=== PATIENT | female | born 1970 | race Caucasian/White ===

== ENCOUNTER 2018-02-05 17:29 | Emergency (ER) | payer OTHER ==
[2018-02-05 17:42] VITALS: BP 116/77
[2018-02-05] MEDS ORDERED: levoFLOXacin 0.5% OPHTH DROPS 5 ML LEFTEYE STA (18:20)
[2018-02-05] MEDS ORDERED: PROPARACAINE 0.5% OPHTH DROPS 15 ML LEFTEYE STA (18:20)
--- NOTE | 2018-02-05 18:23 | ED Physician Documentation ---
PD HPI OPHTHO - Stated complaint Stated Complaint: L EYE PX - Chief complaint Chief Complaint: Heent - History obtained from History obtained from: Patient - History of Present Illness Timing - onset: Today (Scratched by her own dog to the left eye about 1 PM today with moderate pain, no visual deficit. Does not wear contacts.) Review of Systems Constitutional: reports: Reviewed and negative Throat: reports: Reviewed and negative Cardiac: reports: Reviewed and negative PD PAST MEDICAL HISTORY - Past Medical History Past Medical History: No - Past Surgical History Past Surgical History: No - Present Medications Home Medications: Ambulatory Orders Medication Instructions Recorded Confirmed levoFLOXacin 0.5% OPHTH DROPS 1 drops OPTH Q2H #1 bottle 02/05/18 [Quixin Ophth Drops] - Allergies Allergies/Adverse Reactions: Allergies Allergy/AdvReac Type Severity Reaction Status Date / Time acetaminophen Allergy Dizziness Verified 02/05/18 17:45 Fish Containing Products Allergy Anaphylaxis Verified 02/05/18 17:45 Sulfa (Sulfonamide Allergy Nausea Verified 02/05/18 17:45 Antibiotics) kale Allergy Anaphylaxis Uncoded 02/05/18 17:45 - Social History Does the pt smoke?: No Smoking Status: Never smoker Does the pt drink ETOH?: No Does the pt have substance abuse?: No - Immunizations Immunizations are current?: Yes - POLST Patient has POLST: No PD ED PE NORMAL - Vitals Vital signs reviewed: Yes - General General: Alert and oriented X 3, No acute distress - HEENT HEENT: PERRL, EOMI, Other (There is a small corneal abrasion, superolateral on the left eye) - Neck Neck: Supple, no meningeal sign, No bony TTP Results - Vitals Vitals: Vital Signs - 24 hr 02/05/18 17:39 Temperature 36.8 C Heart Rate 66 Respiratory 16 Rate Blood Pressure 116/77 O2 Saturation 99 Oxygen O2 Source Room air PD MEDICAL DECISION MAKING - Sepsis Event Vital Signs: Vital Signs - 24 hr 02/05/18 17:39 Temperature 36.8 C Heart Rate 66 Respiratory 16 Rate Blood Pressure 116/77 O2 Saturation 99 Oxygen O2 Source Room air Departure - Departure Disposition: 01 Home, Self Care Clinical Impression: Corneal abrasion, left Qualifiers: Encounter type: initial encounter Qualified Code(s): S05.02XA - Injury of conjunctiva and corneal abrasion without foreign body, left eye, initial encounter Condition: Good Record reviewed to determine appropriate education?: Yes Instructions: ED Eye Injury Corneal Abrasion Prescriptions: levoFLOXacin 0.5% OPHTH DROPS [Quixin Ophth Drops] 1 drops OPTH Q2H #1 bottle Comments: Follow-up with your eye doctor Wednesday if not better.
== END 2018-02-05 18:45 | disposition home or self-care (01) ==
LOC: ED 17:29
DX: S05.02XA Injury of conjunctiva and corneal abrasion without foreign body, left eye, initial encounter (principal); W54.8XXA Other contact with dog, initial encounter
CPT/HCPCS: 99283; A9270; J3490

== ENCOUNTER 2020-02-02 16:45 | Outpatient (CLI) | payer BC, OTHER | END 2020-02-02 23:59 | disposition home or self-care (01) | LOC: LAB.R 16:45 | PROVIDERS: ATTEND Physician Assistant Medical | DX: K52.9 Noninfective gastroenteritis and colitis, unspecified (principal) | CPT/HCPCS: 81599; 87506 ==

== ENCOUNTER 2020-06-23 13:02 | Outpatient (CLI) | payer BC ==
--- NOTE | 2020-06-23 13:22 | XRAY Report ---
PROCEDURE: Finger(s) RT INDICATIONS: THUMB PAIN, RIGHT TECHNIQUE: AP hand, 2 views of the first finger(s) acquired. COMPARISON: None FINDINGS: Bones: There appears to be mild ulnar subluxation of the proximal phalanx of the first digit in rela tion to the metacarpal. There is a prominent osteophyte at the ulnar aspect. There is a well-corticat ed ossicle adjacent to the first digit proximal phalangeal head. No acute fractures or dislocations. No suspicious bony lesions. Soft tissues: No suspicious soft tissue calcifications. IMPRESSION: Question of subluxation at the first MCP joint. Mild to moderate degenerative change at this joint. Reviewed by: Dank Diamond MD on 06/23/2020 12:21 PM [facility] Approved by: Dank Diamond MD on 06/23/2020 12:21 PM [facility] Station ID: [id number]
== END 2020-06-23 23:59 | disposition home or self-care (01) ==
LOC: DI.S 13:02
PROVIDERS: ATTEND Physician Assistant Medical
DX: M79.644 Pain in right finger(s) (principal); M19.041 Primary osteoarthritis, right hand

== ENCOUNTER 2020-12-27 15:57 | Outpatient (CLI) | payer BC ==
--- NOTE | 2020-12-27 16:40 | XRAY Report ---
PROCEDURE: Ankle 3 View RT INDICATIONS: RIGHT ANKLE PAIN TECHNIQUE: 3 views of the ankle were acquired. COMPARISON: None. FINDINGS: Bones: No fractures or dislocations. Ankle mortise is normally aligned. No suspicious bony lesions . Soft tissues: No tibiotalar joint effusion. Achilles tendon appears normal. IMPRESSION: No fracture. If the patient's pain or other symptoms persist, consider further evaluatio n with MRI. Reviewed by: Chet Dumas MD on 12/27/2020 4:38 PM PDT Approved by: Chet Dumas MD on 12/27/2020 4:38 PM PDT Station ID: [id number]
== END 2020-12-27 23:59 | disposition home or self-care (01) ==
LOC: DI.S 15:57
PROVIDERS: ATTEND Emergency Medicine
DX: M25.571 Pain in right ankle and joints of right foot (principal)

== ENCOUNTER 2021-10-28 09:17 | Outpatient (CLI) | payer BC ==
--- NOTE | 2021-10-28 12:47 | XRAY Report ---
PROCEDURE: Ankle 3 View LT INDICATIONS: SPRAIN OF LEFT ANKLE TECHNIQUE: 3 views of the ankle were acquired. COMPARISON: None. FINDINGS: Bones: No fractures or dislocations. Ankle mortise is normally aligned. No suspicious bony lesions . Soft tissues: No tibiotalar joint effusion. Achilles tendon appears normal. IMPRESSION: No acute osseous abnormalities. Reviewed by: Nathen Narayan MD on 10/28/2021 12:45 PM PDT Approved by: Nathen Narayan MD on 10/28/2021 12:45 PM PDT Station ID: [id number]
== END 2021-10-28 23:59 | disposition home or self-care (01) ==
LOC: DI.S 09:17
PROVIDERS: ATTEND Emergency Medicine
DX: S93.492A Sprain of other ligament of left ankle, initial encounter (principal)

== ENCOUNTER 2023-05-16 13:10 | Emergency (ER) | payer BC ==
[2023-05-16 13:41] VITALS: BP 135/86; O2SAT 99
--- NOTE | 2023-05-16 14:04 | ED Physician Documentation ---
History of Present Illness - Stated complaint Stated Complaint: LT ELBOW INJ - Chief complaint Chief Complaint: Trauma Ext - Additonal information Additional information: 53-year-old female presents emergency department for evaluation of acute left elbow injury. Her horse accidentally kicked her directly on the elbow just about an hour prior to arrival. She has a superficial abrasion with some surrounding ecchymosis and swelling. Since the incident she has begun to have some numbness on her ring and small finger. Patient is right-hand dominant. Reports tetanus is up-to-date. Review of Systems Constitutional: denies: Fever Musculoskeletal: reports: Joint pain PD PAST MEDICAL HISTORY - Past Medical History Past Medical History: Yes - Past Surgical History Past Surgical History: No - Present Medications Home Medications: Ambulatory Orders Medication Instructions Recorded Confirmed Montelukast [Singulair] 10 mg PO DAILY 05/16/23 05/16/23 valACYclovir [Valtrex] 500 mg PO DAILY 05/16/23 05/16/23 - Allergies Allergies/Adverse Reactions: Allergies Allergy/AdvReac Type Severity Reaction Status Date / Time acetaminophen Allergy Dizziness Verified 02/05/18 17:45 egg Allergy Anaphylaxis Verified 05/16/23 13:33 Fish Containing Products Allergy Anaphylaxis Verified 02/05/18 17:45 Sulfa (Sulfonamide Allergy Nausea Verified 02/05/18 17:45 Antibiotics) kale Allergy Anaphylaxis Uncoded 02/05/18 17:45 - Social History Does the pt smoke?: No Smoking Status: Never smoker Does the pt drink ETOH?: No Does the pt have substance abuse?: No - Immunizations Immunizations are current?: Yes - POLST Patient has POLST: No PD ED PE EXPANDED - Extremities Extremities: Left elbow (Superficial abrasion just distal to the olecranon process. Normal flexion extension. Normal pronation and supination. She does have some surrounding swelling and ecchymosis mostly on the radial side. Normal sales support administrator strength distally though subjective numbness of the ring and small finger) Results - Vitals Vitals: Vital Signs - 24 hr 05/16/23 13:29 Temperature 36.6 C Heart Rate 73 Respiratory 16 Rate Blood Pressure 135/86 H O2 Saturation 99 Oxygen O2 Source Room air - Rads (name of study) left elbow Relevant Findings:: Final report received (No acute fracture or osseous lesion.) PD Medical Decision Making - ED course Complexity details: reviewed results, d/w patient ED course: She was kicked in her left elbow by her horse prior to arrival. She has a superficial abrasion just distal to the olecranon as well as some surrounding ecchymosis and swelling. She is reporting numbness of the left ring and small finger. She is right-hand dominant with up-to-date tetanus. On exam she has normal flexion extension, pronation/supination. The numbness I suspect is due to contusion putting pressure on the nerve. The x-rays interpreted by the radiologist shows no occult fracture or secondary findings such as a sail sign. I discussed with patient that the numbness is likely emanating from the contusion and swelling. We discussed RICE measures. Would follow closely with PCP. If not markedly better or develops any concerns of infection she should return to the ER for repeat evaluation. Departure - Departure Disposition: 01 Home, Self Care Clinical Impression: Numbness of fingers Left elbow contusion Qualifiers: Encounter type: initial encounter Qualified Code(s): S50.02XA - Contusion of left elbow, initial encounter Condition: Stable Record reviewed to determine appropriate education?: Yes Instructions: ED Contusion Elbow Comments: You were kicked in the left elbow by your horse. You do have an abrasion on your elbow as well as some surrounding swelling and bruising. The x-ray does not show a broken bone. However you have developed some numbness in your ring and small finger. I suspect that the contusion/bruising/swelling is putting some pressure on this nerve causing the numbness. Over time as the swelling and bruising improves I would expect the numbness to improve. Your abrasion is superficial and I would simply recommend washing with warm soap and water and applying bacitracin or antibiotic ointment. In general for pain I would recommend 500 mg of Tylenol 2-3 times a day or alternating with ibuprofen 600 mg taken with food also 2-3 times a day. Please follow closely with your primary care doctor. Return to the ER if you are having any new or worsening symptoms that would include fevers, milky drainage red streaking or failure symptoms to improve as anticipated. Forms: PCP List
--- NOTE | 2023-05-16 14:30 | XRAY Report ---
PROCEDURE: Elbow 3 View LT INDICATIONS: kicked by horse TECHNIQUE: 3 views of the elbow were acquired. COMPARISON: None FINDINGS: Bones: No fractures or dislocations. No suspicious bony lesions. Soft tissues: No elbow joint effusion. No suspicious soft tissue calcifications. IMPRESSION: Unremarkable elbow radiographs Reviewed by: Vinicius Dixon MD on 05/16/2023 1:28 PM [facility] Approved by: Vinicius Dixon MD on 05/16/2023 1:28 PM [facility] Station ID: [id number]
== END 2023-05-16 14:39 | disposition home or self-care (01) ==
LOC: ED 13:10
DX: S50.312A Abrasion of left elbow, initial encounter (principal); S50.02XA Contusion of left elbow, initial encounter; W55.12XA Struck by horse, initial encounter; R20.0 Anesthesia of skin
CPT/HCPCS: 99283